=== PATIENT | female | born 1950 | race Caucasian/White ===

== ENCOUNTER → 2024-05-18 | Day surgery (SDC) | payer OTHER, MEDICAID ==
[~2024-05-18] VITALS: Ht 157.5 cm; Wt 62.6 kg
[~2024-05-18] MED LIST: ALEN70TA79 PO; BALANCED SALT IRRIG SOLN COMB1 500ML OP NR; BELI200A SQ; CYCLOPENTOLATE HCL 1% OPHTH DROPS 2ML RIGHTEYE SCH; GABA-529 PO; HYALURONATE SODIUM 10MG/ML 0.55ML SYRINGE IO ONE; HYDR200T35 PO; HYDROMORPHONE HCL/PF 1MG/ML INJ IV PRN; IPRATROPIUM/ALBUTEROL 0.5-3(2.5)MG/3ML NEB HHN PRN; LABETALOL 5MG/ML 4ML INJ IV PRN; LACTATED RINGERS 1,000 ML IV SCH; MECL-299 PO; MEPERIDINE HCL/PF 25MG/ML CPJ IV PRN; NALOXONE HCL 0.4MG/ML 1ML VIAL IV PRN; ONDANSETRON HCL 4MG/2ML INJ IV PRN; PHENYLEPHRINE HCL 10% OPHTH DROPS 5ML RIGHTEYE SCH; TETRACAINE 0.5% OPHTH DROPS 4ML ONE; TROPICAMIDE 1% OPHTH DROPS 15ML RIGHTEYE SCH; TUMERIC PO
== END | disposition home or self-care (01) ==
LOC: OR 09:01
PROVIDERS: ATTEND Ophthalmology
DX: H25.89 Other age-related cataract (principal); M81.0 Age-related osteoporosis without current pathological fracture; E78.00 Pure hypercholesterolemia, unspecified; Z79.899 Other long term (current) drug therapy; Z90.710 Acquired absence of both cervix and uterus; Z98.890 Other specified postprocedural states
CPT/HCPCS: 66984; V2632; J3490

== ENCOUNTER → 2024-11-09 | Day surgery (SDC) | payer OTHER, MEDICAID ==
[~2024-11-09] VITALS: Ht 157.5 cm; Wt 63.5 kg
[~2024-11-09] MED LIST changes: +BALANCED SALT IRRIG SOLN 15ML ONE; -BALANCED SALT IRRIG SOLN COMB1 500ML OP NR; +BALANCED SALT IRRIG SOLN COMB1 500ML OP SCH; +CYCL7.5T25 PO; +CYCLOPENTOLATE HCL 1% OPHTH DROPS 2ML LEFTEYE NR; -CYCLOPENTOLATE HCL 1% OPHTH DROPS 2ML RIGHTEYE SCH; +FENTANYL CITRATE/PF 50MCG/ML 2ML VIAL ONE; -HYDROMORPHONE HCL/PF 1MG/ML INJ IV PRN; -IPRATROPIUM/ALBUTEROL 0.5-3(2.5)MG/3ML NEB HHN PRN; -LABETALOL 5MG/ML 4ML INJ IV PRN; -LACTATED RINGERS 1,000 ML IV SCH; -MEPERIDINE HCL/PF 25MG/ML CPJ IV PRN; +METH2.5T PO; -NALOXONE HCL 0.4MG/ML 1ML VIAL IV PRN; -ONDANSETRON HCL 4MG/2ML INJ IV PRN; +PHENYLEPHRINE HCL 10% OPHTH DROPS 5ML LEFTEYE NR; -PHENYLEPHRINE HCL 10% OPHTH DROPS 5ML RIGHTEYE SCH; -TETRACAINE 0.5% OPHTH DROPS 4ML ONE; +TROPICAMIDE 1% OPHTH DROPS 15ML LEFTEYE NR; -TROPICAMIDE 1% OPHTH DROPS 15ML RIGHTEYE SCH; -TUMERIC PO
[2024-11-09] MEDS: SODIUM CHLORIDE 0.9% 1,000 ML IV SCH (11:10)
== END | disposition home or self-care (01) ==
LOC: OR 08:41
PROVIDERS: ATTEND Ophthalmology
DX: H25.89 Other age-related cataract (principal); E78.5 Hyperlipidemia, unspecified; Z79.899 Other long term (current) drug therapy; Z90.710 Acquired absence of both cervix and uterus; Z98.890 Other specified postprocedural states
CPT/HCPCS: 66984; 93005; 82962; V2632; J3010; J2003; J3490